=== PATIENT | male | born 1960 | race Caucasian/White ===

== ENCOUNTER → 2019-05-19 07:37 | Outpatient (CLI) | payer OTHER, SELFPAY ==
[2019-05-19 08:15] LABS: Add Manual Diff / Slide Review NO; Basophils Absolute Auto 0 /uL (0-100); Basophils Percent Auto 0.6 % (0-2); Eosinophils Absolute Auto 200 /uL (0-450); Eosinophils Percent Auto 2.5 % (2-4); Hematocrit 45.9 % (41-53); Hemoglobin 15.7 g/dL (13.5-17.5); Lymphocytes Absolute Auto 2200 /uL (1100-4500); Lymphocytes Percent Auto 36.5 % (25-40); Mean Corpuscular HGB Conc 34.1 % (30-36); Mean Corpuscular Hemoglobin 29.3 PG (26-34); Monocytes Absolute Auto 400 /uL (0-900); Monocytes Percent Auto 7.3 % (3-14); Neutrophils Absolute Auto 3200 /uL (1500-7000); Neutrophils Percent Auto 53.1 % (50-75); Platelet Count 294 X10^3/uL (150-400); Red Blood Cell Count 5.34 X10^6/uL (4.5-5.9); Red Cell Distribution Width 13.1 % (11.6-14.8)
[2019-05-19 09:25] LABS: Alanine Aminotransferase 26 IU/L (<50); Albumin 4.6 g/dL (3.5-5.0); Albumin Globulin Ratio 1.9 (1.0-2.8); Alkaline Phosphatase 72 U/L (38-126); Aspartate Aminotransferase 23 IU/L (17-59); BUN Creatinine Ratio 26.7 (6-22); Bilirubin Total 0.3 mg/dL (0.2-1.3); Blood Urea Nitrogen 24 mg/dL (9-20); Calcium 10.3 mg/dL (8.4-10.2); Carbon Dioxide 26 mmol/L (22-32); Chloride 104 mmol/L (98-107); Cholesterol 238 mg/dL (140-199); Estimated Glomerular Filt Rate > 60.0 mL/min (>60); Globulin 2.4 g/dL (1.7-4.1); Glucose 98 mg/dL (70-100); HDL Cholesterol 34 mg/dL (40-60); HEMOLYSIS < 15 (0-50); LDL Cholesterol Calculated 168 mg/dL (<100); Potassium 4.9 mmol/L (3.4-5.1); Sodium 140 mmol/L (137-145); Triglycerides 182 mg/dL (35-150)
== END ==
PROVIDERS: PCP Family Medicine; Visit Provider Family Medicine
DX: I10 Essential (primary) hypertension (principal)
CPT/HCPCS: 36415; 80053; 80061; 85025; G0103

== ENCOUNTER → 2019-11-23 09:23 | Outpatient (CLI) | payer OTHER, SELFPAY ==
[2019-11-23 11:19] LABS: Cholesterol 187 mg/dL (140-199); HDL Cholesterol 39 mg/dL (40-60); LDL Cholesterol Calculated 122 mg/dL (<100); Triglycerides 130 mg/dL (35-150)
== END ==
PROVIDERS: PCP Family Medicine; Referring Provider Family Medicine; Visit Provider Family Medicine
DX: E78.5 Hyperlipidemia, unspecified (principal)
CPT/HCPCS: 36415; 80061

== ENCOUNTER → 2020-04-26 09:11 | Outpatient (CLI) | payer OTHER, SELFPAY ==
[2020-04-26 09:43] LABS: Add Manual Diff / Slide Review NO; Basophils Absolute Auto 0 /uL (0-100); Basophils Percent Auto 0.5 % (0-2); Eosinophils Absolute Auto 100 /uL (0-450); Eosinophils Percent Auto 1.1 % (2-4); Hemoglobin 15.4 g/dL (13.5-17.5); Lymphocytes Absolute Auto 2100 /uL (1100-4500); Lymphocytes Percent Auto 39.4 % (25-40); Mean Corpuscular HGB Conc 34.2 % (30-36); Mean Corpuscular Hemoglobin 29.7 PG (26-34); Mean Corpuscular Volume 86.8 fL (80-100); Monocytes Absolute Auto 400 /uL (0-900); Monocytes Percent Auto 6.5 % (3-14); Neutrophils Absolute Auto 2800 /uL (1500-7000); Neutrophils Percent Auto 52.5 % (50-75); Platelet Count 266 X10^3/uL (150-400); Red Blood Cell Count 5.19 X10^6/uL (4.5-5.9); Red Cell Distribution Width 13.1 % (11.6-14.8); White Blood Cell Count 5.4 X10^3/uL (4.5-11.0)
[2020-04-26 10:14] LABS: Alanine Aminotransferase 36 IU/L (<50); Albumin 4.5 g/dL (3.5-5.0); Albumin Globulin Ratio 1.7 (1.0-2.8); Alkaline Phosphatase 84 U/L (38-126); Aspartate Aminotransferase 31 IU/L (17-59); BUN Creatinine Ratio 20.3 (6-22); Bilirubin Total 0.5 mg/dL (0.2-1.3); Blood Urea Nitrogen 15 mg/dL (9-20); Calcium 9.8 mg/dL (8.4-10.2); Carbon Dioxide 28 mmol/L (22-32); Chloride 107 mmol/L (98-107); Cholesterol 207 mg/dL (140-199); Estimated Glomerular Filt Rate > 60.0 mL/min (>60); Globulin 2.7 g/dL (1.7-4.1); Glucose 105 mg/dL (70-100); HDL Cholesterol 31 mg/dL (40-60); HEMOLYSIS < 15 (0-50); LDL Cholesterol Calculated 125 mg/dL (<100); Potassium 4.4 mmol/L (3.4-5.1); Sodium 138 mmol/L (137-145); Total Protein 7.2 g/dL (6.3-8.2); Triglycerides 254 mg/dL (35-150)
[2020-04-26 10:41] LABS: Prostate Specific Antigen Scrn 2.97 ng/mL (0.1-4.0)
== END ==
PROVIDERS: PCP Family Medicine; Referring Provider Family Medicine; Visit Provider Family Medicine
DX: Z12.5 Encounter for screening for malignant neoplasm of prostate (principal); Z13.220 Encounter for screening for lipoid disorders; Z13.6 Encounter for screening for cardiovascular disorders
CPT/HCPCS: 36415; 80053; 80061; 85025; G0103

== ENCOUNTER → 2020-11-19 07:59 | Outpatient (CLI) | payer OTHER, SELFPAY ==
--- NOTE | 2020-11-19 08:02 | DI.RAD.S_ITS ---
PROCEDURE: XR CHEST 2V INDICATIONS: LLL nodule TECHNIQUE: 2 views of the chest were acquired. COMPARISON: [facility], CR, ABDOMEN 2 VIEW, 08/15/2008, 12:46. [facility], CT, CT-IVP, 08/15/2008, 12:42. FINDINGS: Surgical changes and devices: None. Lungs and pleura: Lungs are clear. No pleural effusions or pneumothorax. Mediastinum: Mediastinal contours are normal. Heart size is normal. Bones and chest wall: No suspicious bony abnormalities. Soft tissues appear unremarkable. IMPRESSION: Normal for age, no left lower lobe nodule is suspected. Note: No prior imaging study in the patient's medical record in [facility] is identified that includes a diagnosis or concern for presence of left lower lobe pulmonary nodule. This implies that an outside study exists and that should be obtained for review and addendum report to this study should be generated if that becomes available. For example, if a prior outside CT identified a pulmonary nodule that nodule may only be visible on a follow-up CT rather than this plain film study.. Dictated by: Jeb Rosenthal M.D. on 11/19/2020 at 9:49 Approved by: Jeb Rosenthal M.D. on 11/19/2020 at 9:54
[2020-11-19 09:03] LABS: Alanine Aminotransferase 33 IU/L (<50); Albumin 4.7 g/dL (3.5-5.0); Albumin Globulin Ratio 1.8 (1.0-2.8); Alkaline Phosphatase 100 U/L (38-126); Aspartate Aminotransferase 29 IU/L (17-59); BUN Creatinine Ratio 17.1 (6-22); Bilirubin Total 0.5 mg/dL (0.2-1.3); Blood Urea Nitrogen 13 mg/dL (9-20); Calcium 10.1 mg/dL (8.4-10.2); Carbon Dioxide 23 mmol/L (22-32); Chloride 105 mmol/L (98-107); Cholesterol 181 mg/dL (140-199); Estimated Glomerular Filt Rate > 60.0 mL/min (>60); Globulin 2.6 g/dL (1.7-4.1); Glucose 110 mg/dL (70-100); HDL Cholesterol 29 mg/dL (40-60); HEMOLYSIS < 15 (0-50); LDL Cholesterol Calculated 88 mg/dL (<100); Potassium 4.4 mmol/L (3.4-5.1); Sodium 139 mmol/L (137-145); Total Protein 7.3 g/dL (6.3-8.2); Triglycerides 318 mg/dL (35-150)
[2020-11-20 14:08] LABS: Fecal Immunochemical Test Negative (Negative)
== END ==
PROVIDERS: PCP Family Medicine; Referring Provider Internal Medicine; Visit Provider Internal Medicine
DX: R91.1 Solitary pulmonary nodule (principal); Z12.11 Encounter for screening for malignant neoplasm of colon; E78.2 Mixed hyperlipidemia; I10 Essential (primary) hypertension
CPT/HCPCS: 36415; 71046; 80053; 80061; 82274

== ENCOUNTER → 2022-04-01 15:44 | Outpatient (CLI) | payer OTHER, SELFPAY ==
--- NOTE | 2022-04-01 15:46 | DI.RAD.S_ITS ---
PROCEDURE: XR WRIST RT MIN 3V INDICATIONS: pain and swelling TECHNIQUE: Four views of the wrist were acquired. COMPARISON: [facility], CR, XR WRIST LT MIN 3V, 04/01/2022, 15:48. FINDINGS: Advanced degenerative changes in the right wrist with findings most severe in the triscaphe and radiocarpal joints. There is complete loss of joint radioscaphoid joint space with [id number] contact associated with subchondral sclerosis and cystic change. Triscaphe advanced degenerative changes moderate to severe with narrowing and osteophytosis. Moderate 1st CMC degenerative changes. IMPRESSION: Severe radiocarpal and triscaphe degenerative changes with moderate 1st CMC degenerative changes. And associated Dictated by: Herrera Taylor M.D. on 04/02/2022 at 8:44 Approved by: Herrera Taylor M.D. on 04/02/2022 at 8:46
--- NOTE | 2022-04-01 15:46 | DI.RAD.S_ITS ---
PROCEDURE: XR WRIST LT MIN 3V INDICATIONS: pain and swelling TECHNIQUE: 4 views of the wrist were acquired. COMPARISON: None. 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 Severe radiocarpal and triscaphe osteoarthritis with appearance suggestive of SLAC tear. No fracture or dislocation. No acute soft tissue finding. Dictated by: Herrera Taylor M.D. on 04/02/2022 at 8:46 Approved by: Herrera Taylor M.D. on 04/02/2022 at 8:47
== END ==
PROVIDERS: PCP Family Medicine; Referring Provider Family Medicine; Visit Provider Family Medicine
DX: M18.12 Unilateral primary osteoarthritis of first carpometacarpal joint, left hand (principal); M19.032 Primary osteoarthritis, left wrist; M25.531 Pain in right wrist; M25.532 Pain in left wrist
CPT/HCPCS: 73110

== ENCOUNTER → 2022-04-09 08:34 | Outpatient (CLI) | payer OTHER, SELFPAY ==
[2022-04-09 09:34] LABS: Add Manual Diff / Slide Review NO; Basophils Absolute Auto 0 /uL (0-100); Basophils Percent Auto 0.4 % (0-2); Eosinophils Absolute Auto 100 /uL (0-450); Eosinophils Percent Auto 1.8 % (2-4); Hematocrit 43.6 % (41-53); Hemoglobin 15.1 g/dL (13.5-17.5); Lymphocytes Absolute Auto 2100 /uL (1100-4500); Lymphocytes Percent Auto 40.3 % (25-40); Mean Corpuscular HGB Conc 34.6 % (30-36); Mean Corpuscular Hemoglobin 29.5 PG (26-34); Mean Corpuscular Volume 85.3 fL (80-100); Monocytes Absolute Auto 400 /uL (0-900); Monocytes Percent Auto 6.8 % (3-14); Neutrophils Absolute Auto 2700 /uL (1500-7000); Neutrophils Percent Auto 50.7 % (50-75); Platelet Count 260 X10^3/uL (150-400); Red Blood Cell Count 5.12 X10^6/uL (4.5-5.9); Red Cell Distribution Width 14.1 % (11.6-14.8); White Blood Cell Count 5.3 X10^3/uL (4.5-11.0)
[2022-04-09 10:47] LABS: Alanine Aminotransferase 33 IU/L (<50); Albumin 4.5 g/dL (3.5-5.0); Albumin Globulin Ratio 1.7 (1.0-2.8); Alkaline Phosphatase 73 U/L (38-126); Aspartate Aminotransferase 25 IU/L (17-59); BUN Creatinine Ratio 18.6 (6-22); Bilirubin Total 0.4 mg/dL (0.2-1.3); Blood Urea Nitrogen 13 mg/dL (9-20); Calcium 9.5 mg/dL (8.4-10.2); Carbon Dioxide 25 mmol/L (22-32); Chloride 103 mmol/L (98-107); Cholesterol 206 mg/dL (140-199); Estimated Glomerular Filt Rate > 60 mL/min (>60); Globulin 2.6 g/dL (1.7-4.1); Glucose 100 mg/dL (80-110); HDL Cholesterol 32 mg/dL (40-60); HEMOLYSIS < 15 (0-50); LDL Cholesterol Calculated 157 mg/dL (<100); Potassium 4.6 mmol/L (3.4-5.1); Sodium 139 mmol/L (137-145); Total Protein 7.1 g/dL (6.3-8.2); Triglycerides 87 mg/dL (35-150)
[2022-04-09 11:15] LABS: Prostate Specific Antigen Scrn 4.03 ng/mL (0.1-4.0)
== END ==
PROVIDERS: PCP Family Medicine; Referring Provider Family Medicine; Visit Provider Family Medicine
DX: E78.2 Mixed hyperlipidemia (principal); I10 Essential (primary) hypertension; Z12.5 Encounter for screening for malignant neoplasm of prostate
CPT/HCPCS: 36415; 80053; 80061; 85025; G0103

== ENCOUNTER → 2022-04-30 07:20 | Outpatient (CLI) | payer OTHER, SELFPAY ==
--- NOTE | 2022-04-30 07:21 | DI.US.S_ITS ---
PROCEDURE: US ABDOMEN LIMITED INDICATIONS: MASS MEDIAL TO LEFT SCAPULA/LOOK FOR DEEP LIPOMA TECHNIQUE: Real-time focused scanning was performed of the abdomen, with image documentation. Color Doppler was also utilized. COMPARISON: None. FINDINGS: Scanning is performed at the area of clinical concern. At this site, no ultrasound abnormalities are seen. No masses, lipomas, or fluid collections can be seen. No abnormal vascularity can be seen. IMPRESSION: No focal abnormality can be seen at the site of clinical concern. Dictated by: Abiel Fowler M.D. on 04/30/2022 at 10:33 Approved by: Abiel Fowler M.D. on 04/30/2022 at 10:34
== END ==
PROVIDERS: PCP Family Medicine; Referring Provider Family Medicine; Visit Provider Family Medicine
DX: R22.2 Localized swelling, mass and lump, trunk (principal)
CPT/HCPCS: 76705

== ENCOUNTER → 2023-07-24 08:05 | Outpatient (CLI) | payer OTHER, SELFPAY ==
[2023-07-24 09:43] LABS: Alanine Aminotransferase 36 IU/L (<50); Albumin 4.6 g/dL (3.5-5.0); Albumin Globulin Ratio 1.7 (1.0-2.8); Alkaline Phosphatase 76 U/L (38-126); Aspartate Aminotransferase 33 IU/L (17-59); BUN Creatinine Ratio 16.7 (6-22); Bilirubin Total 0.8 mg/dL (0.2-1.3); Blood Urea Nitrogen 13 mg/dL (9-20); Calcium 9.7 mg/dL (8.4-10.2); Carbon Dioxide 24 mmol/L (22-32); Chloride 105 mmol/L (98-107); Cholesterol 195 mg/dL (140-199); Estimated Glomerular Filt Rate > 60 mL/min (>60); Globulin 2.7 g/dL (1.7-4.1); Glucose 100 mg/dL (80-110); HDL Cholesterol 40 mg/dL (40-60); HEMOLYSIS < 15 (0-50); LDL Cholesterol Calculated 115 mg/dL (<100); Potassium 4.5 mmol/L (3.4-5.1); Sodium 137 mmol/L (137-145); Total Protein 7.3 g/dL (6.3-8.2); Triglycerides 198 mg/dL (35-150)
[2023-07-24 09:51] LABS: Add Manual Diff / Slide Review NO; Basophils Absolute Auto 0 /uL (0-100); Basophils Percent Auto 0.5 % (0-2); Eosinophils Absolute Auto 0 /uL (0-450); Eosinophils Percent Auto 0.7 % (2-4); Hematocrit 45.6 % (41-53); Hemoglobin 15.8 g/dL (13.5-17.5); Lymphocytes Absolute Auto 2300 /uL (1100-4500); Lymphocytes Percent Auto 34.2 % (25-40); Mean Corpuscular HGB Conc 34.6 % (30-36); Mean Corpuscular Hemoglobin 30.5 PG (26-34); Mean Corpuscular Volume 88.1 fL (80-100); Monocytes Absolute Auto 500 /uL (0-900); Monocytes Percent Auto 7.7 % (3-14); Neutrophils Absolute Auto 3800 /uL (1500-7000); Neutrophils Percent Auto 56.9 % (50-75); Platelet Count 320 X10^3/uL (150-400); Red Blood Cell Count 5.18 X10^6/uL (4.5-5.9); Red Cell Distribution Width 13.3 % (11.6-14.8); White Blood Cell Count 6.6 X10^3/uL (4.5-11.0)
[2023-07-24 10:07] LABS: Prostate Specific Antigen Scrn 6.42 ng/mL (0.1-4.0)
== END ==
LOC: LAB 08:06
PROVIDERS: PCP Family Medicine; Referring Provider Family Medicine; Visit Provider Family Medicine
DX: Z12.5 Encounter for screening for malignant neoplasm of prostate (principal); E78.2 Mixed hyperlipidemia; I10 Essential (primary) hypertension
CPT/HCPCS: 36415; 80053; 80061; 85025; G0103

== ENCOUNTER → 2023-10-05 07:16 | Outpatient (CLI) | payer OTHER, SELFPAY ==
--- NOTE | 2023-10-05 07:17 | DI.MRI.S_ITS ---
PROCEDURE: MR PELVIC PROSTATE PROTOCOL INDICATIONS: Elevated and rising PSA TECHNIQUE: Coronal HASTE, axial T1 FSE with fat saturation, 3-plane nonbreath-hold T2 FSE. After the administration of contrast, dynamic axial, delayed axial and coronal VIBE or 2-D FLASH with fat saturation through the pelvis. Diffusion weighted imaging and ADC was performed. COMPARISON: None. FINDINGS: Image quality: Diffusion weighted and dynamic contrast enhanced images are diagnostic. Prostate: Gland size is 3.8 x 5.0 x 4.5 cm; ellipsoid gland volume is 45 mL. PSA density of 0.14. Heterogeneous T2 hypointense signal throughout the medial peripheral zone, centered at the mid gland, most consistent with prostatitis. Lesion 1: Location: Right anterior peripheral zone, mid gland, on axial series 4, image 12 and sagittal series 6, image 10. Size: 0.5 x 0.4 cm. T2W signal: Hypointense. DWI signal: Isointense. ADC signal: Markedly hypointense. Enhancement: Yes. Extracapsular extension: No. No neurovascular involvement. PI-RADS score: 4 Genitourinary system: Bladder wall thickness is normal. Distal ureters are non distended. Small right testicular hydrocele. Bowel and peritoneum: No pathologic free pelvic fluid. Inferior colon and small bowel loops are normal in caliber. Colonic diverticulosis without evidence of diverticulitis. Nodes and vessels: No pelvic or inguinal adenopathy by size criteria. Iliac vessels are normal in caliber. Soft tissues: No inguinal hernias. Bones: Marrow demonstrates normal overall signal, without lesions to suggest metastases. IMPRESSION: PI-RADS 4 lesion in the anterior peripheral zone of the mid gland, without extracapsular extension. Superimposed prostatitis. No pelvic lymphadenopathy by size criteria; micrometastasis not excluded. No aggressive osseous abnormality. Small right testicular hydrocele. Dictated by: Tree Mancia M.D. on 10/05/2023 at 10:03 Approved by: Tree Mancia M.D. on 10/05/2023 at 10:12
== END ==
PROVIDERS: PCP Family Medicine; Referring Provider Urology; Visit Provider Urology
DX: N41.9 Inflammatory disease of prostate, unspecified (principal); N42.9 Disorder of prostate, unspecified; N43.3 Hydrocele, unspecified; R97.20 Elevated prostate specific antigen [PSA]
CPT/HCPCS: 72197; A9579

== ENCOUNTER → 2023-11-30 09:02 | Outpatient (CLI) | payer OTHER, SELFPAY ==
--- NOTE | 2023-11-30 09:03 | DI.NM.S_ITS ---
PROCEDURE: NM BONE SCAN WHOLE BODY RADIOPHARMACEUTICAL: 21.1 mCi Tc-99m MDP IV. INDICATIONS: Prostate cancer TECHNIQUE: Delayed whole-body scintigrams were obtained approximately 3-4 hours after intravenous injection of radiotracer. Anterior and posterior views were acquired from vertex to feet. Additional oblique views of the pelvis. COMPARISON: [facility], CR, XR FOOT 3+ VIEWS LEFT, 03/22/2018, 17:41. [facility], CT, CT ABDOMEN PELVIS W CON, 11/30/2023, 10:48. [facility], MR, MR PELVIC PROSTATE PROTOCOL, 10/05/2023, 7:45. FINDINGS: There are foci of increased uptake in mandible, most likely related to dental disease. There is a focus of mildly increased activity in the left ankle, probably in the area of the distal fibula. No lesions are identified in skull, sternum, clavicles, scapulae, ribs, bony pelvis, and visualized shafts of the long bones. There are foci of increased uptake in cervical, thoracic and lumbar spine, most likely secondary to degenerative disc and facet disease; early metastasis to spine could be obscured by degenerative changes. There are foci of increased periarticular activity involving shoulders and wrists bilaterally, compatible with degenerative/arthritic changes. IMPRESSION: 1. Focal uptake in the area of the left distal fibula. Recommend radiographic correlation. 2. Foci of increased uptake in mandible are most likely related to dental disease. Recommend clinical correlation. 3. Elsewhere, no definitive scintigraphic findings to suggest osseous metastasis. Dictated by: Zaida Chang M.D. on 11/30/2023 at 13:08 Approved by: Zaida Chang M.D. on 11/30/2023 at 13:14
[2023-11-30 09:34] LABS: Estimated Glomerular Filt Rate > 60 mL/min (>60)
--- NOTE | 2023-11-30 10:45 | DI.CT.S_ITS ---
PROCEDURE: CT ABDOMEN PELVIS W CON INDICATIONS: Prostate cancer TECHNIQUE: After the administration of intravenous contrast, axial sections acquired from the lung bases to the pubic symphysis. Coronal and sagittal reformats were performed. For radiation dose reduction, the following was used: automated exposure control, adjustment of mA and/or kV according to patient size. COMPARISON: [facility], , MR PELVIC PROSTATE PROTOCOL, 10/05/2023, 7:45. FINDINGS: Image quality: Diagnostic Lower chest: Lung bases appear unremarkable. There are coronary calcifications. Normal heart size Liver: Unremarkable Gallbladder and biliary system: Unremarkable, nondilated Pancreas: No ductal dilation Spleen: Nonenlarged Adrenals: No discrete nodules Kidneys: No solid mass or hydronephrosis Vessels and lymph nodes: The main portal vein is patent. No abdominal aortic aneurysm. Atherosclerotic disease is present. No pathologic lymph nodes by size criteria in the field of view. Bowel and peritoneum: No pathologic ascites. Colonic diverticula. Bowel is nonobstructed. Body wall: Small fat containing umbilical hernia, also containing a portion of nonobstructed small bowel. Pelvis: Mild bladder wall nonspecific thickening. Prostate heterogeneity, not well assessed on CT. Bones: Small sclerotic lesions may represent bone islands, but are indeterminate. Bone scan findings are separately dictated. There are degenerative changes. IMPRESSION: Reported prostate cancer. Primary disease in the prostate is better assessed on MRI. No enlarged lymph nodes by size criteria. Consider prostate PET-CT to evaluate for lucia metastases that may be smaller than CT size criteria. Small scattered sclerotic bone lesions may represent bone islands. Bone scan findings are separately dictated. Other findings above. Dictated by: Simone Kay M.D. on 11/30/2023 at 13:00 Approved by: Simone Kay M.D. on 11/30/2023 at 13:05
== END ==
PROVIDERS: Radiology Diagnostic Radiology; PCP Family Medicine; Referring Provider Urology; Visit Provider Urology
DX: C61 Malignant neoplasm of prostate (principal); K42.9 Umbilical hernia without obstruction or gangrene; K57.90 Diverticulosis of intestine, part unspecified, without perforation or abscess without bleeding
CPT/HCPCS: 36415; 74177; 78306; 82565; A9503; Q9967

== ENCOUNTER → 2023-12-11 08:40 | Outpatient (CLI) | payer OTHER, SELFPAY ==
--- NOTE | 2023-12-11 08:43 | DI.RAD.S_ITS ---
PROCEDURE: XR TIBIA FIBULA LT 2V INDICATIONS: left distal fibula TECHNIQUE: 2 views of the tibia and fibula were acquired. COMPARISON: None. FINDINGS: Bones: No fractures or dislocations. No suspicious bony lesions. Bony irregularity of the proximal fibula shaft. Soft tissues: No suspicious soft tissue calcifications or masses. IMPRESSION: Bony irregularity of the proximal fibula shaft, probably a sequela of prior trauma. No underlying bony lesion or periosteal reaction. Dictated by: Tree Mancia M.D. on 12/11/2023 at 14:06 Approved by: Tree Mancia M.D. on 12/11/2023 at 14:07
== END ==
LOC: RAD 08:42
PROVIDERS: PCP Family Medicine; Referring Provider Urology; Visit Provider Urology
DX: Q74.2 Other congenital malformations of lower limb(s), including pelvic girdle (principal)
CPT/HCPCS: 73590

== ENCOUNTER → 2024-03-13 09:04 | Outpatient (CLI) | payer OTHER, SELFPAY | PROVIDERS: PCP Family Medicine; Referring Provider Urology; Visit Provider Urology | DX: R97.20 Elevated prostate specific antigen [PSA] (principal) | CPT/HCPCS: 36415; 84153 ==

== ENCOUNTER → 2024-06-21 10:05 | Outpatient (CLI) | payer OTHER, SELFPAY ==
[2024-06-21 11:48] LABS: Prostate Specific Antigen 7.09 ng/mL (0.10-4.00)
== END ==
PROVIDERS: PCP Family Medicine; Referring Provider Urology; Visit Provider Urology
DX: C61 Malignant neoplasm of prostate (principal); R97.20 Elevated prostate specific antigen [PSA]
CPT/HCPCS: 36415; 84153

== ENCOUNTER → 2024-07-11 16:09 | Outpatient (CLI) | payer OTHER, SELFPAY | PROVIDERS: PCP Family Medicine; Visit Provider Urology | DX: C61 Malignant neoplasm of prostate (principal); N43.40 Spermatocele of epididymis, unspecified; R97.20 Elevated prostate specific antigen [PSA]; R39.9 Unspecified symptoms and signs involving the genitourinary system | CPT/HCPCS: 51798; 81002; 87077; 87086; 87186; 99213 ==

== ENCOUNTER → 2024-10-09 07:59 | Outpatient (CLI) | payer OTHER, SELFPAY ==
[2024-10-09 09:43] LABS: Prostate Specific Antigen 5.64 ng/mL (0.10-4.00)
== END ==
PROVIDERS: PCP Family Medicine; Referring Provider Urology; Visit Provider Urology
DX: C61 Malignant neoplasm of prostate (principal)
CPT/HCPCS: 36415; 84153

== ENCOUNTER → 2024-10-11 08:09 | Outpatient (CLI) | payer OTHER, SELFPAY | PROVIDERS: PCP Family Medicine; Visit Provider Urology | DX: C61 Malignant neoplasm of prostate (principal); R97.20 Elevated prostate specific antigen [PSA]; R39.9 Unspecified symptoms and signs involving the genitourinary system; Z98.890 Other specified postprocedural states | CPT/HCPCS: 51798; 81002; 87077; 87086; 87186 ==

== ENCOUNTER → 2025-01-08 07:36 | Outpatient (CLI) | payer OTHER, SELFPAY ==
[2025-01-08 11:44] LABS: Prostate Specific Antigen 6.46 ng/mL (0.10-4.00)
== END ==
PROVIDERS: PCP Family Medicine; Referring Provider Family Medicine; Visit Provider Urology
DX: R97.20 Elevated prostate specific antigen [PSA] (principal)
CPT/HCPCS: 36415; 84153

== ENCOUNTER → 2025-01-11 07:56 | Outpatient (CLI) | payer OTHER, SELFPAY | PROVIDERS: PCP Family Medicine; Visit Provider Urology | DX: R39.9 Unspecified symptoms and signs involving the genitourinary system (principal); C61 Malignant neoplasm of prostate; Z68.27 Body mass index [BMI] 27.0-27.9, adult | CPT/HCPCS: 51798; 81002; 87077; 87086; 87186; 99214 ==

== ENCOUNTER → 2025-02-20 10:25 | Outpatient (CLI) | payer OTHER, SELFPAY ==
--- NOTE | 2025-02-20 10:27 | DI.RAD.S_ITS ---
PROCEDURE: XR WRIST LT MIN 3V INDICATIONS: wrist pain TECHNIQUE: 4 views of the wrist were acquired. COMPARISON: [facility], CR, XR WRIST RT MIN 3V, 04/01/2022, 15:48. FINDINGS: Bones: No fractures or dislocations. Advanced degenerative change of the triscaphe and radiocarpal joints marked by joint space narrowing, marginal osteophytosis and subchondral sclerosis and cystic degeneration. No suspicious bony lesions. Soft tissues: No suspicious soft tissue calcifications. IMPRESSION: Degenerative change of the STT and radiocarpal joints without evidence of acute bony abnormality. Dictated by: Juliano Ying M.D. on 02/21/2025 at 4:50 Approved by: Juliano Ying M.D. on 02/21/2025 at 4:52
--- NOTE | 2025-02-20 10:27 | DI.RAD.S_ITS ---
PROCEDURE: XR WRIST RT MIN 3V INDICATIONS: wrist pain TECHNIQUE: 4 views of the wrist were acquired. COMPARISON: [facility], CR, XR WRIST RT MIN 3V, 04/01/2022, 15:48. FINDINGS: Bones: No fractures or dislocations. Degenerative change of the triscaphe and radiocarpal joints includes joint space narrowing, marginal osteophytosis and subchondral sclerosis. No suspicious bony lesions. Soft tissues: No suspicious soft tissue calcifications. IMPRESSION: Degenerative change of the STT and radiocarpal joints without evidence of acute bony abnormality. Dictated by: Juliano Ying M.D. on 02/21/2025 at 4:57 Approved by: Juliano Ying M.D. on 02/21/2025 at 5:02
== END ==
PROVIDERS: PCP Family Medicine; Referring Provider Family Medicine; Visit Provider Family Medicine
DX: M25.531 Pain in right wrist (principal); M25.532 Pain in left wrist; G89.29 Other chronic pain
CPT/HCPCS: 73110